=== PATIENT | female | born 1965 | race African-American/Black ===

== ENCOUNTER 2017-08-23 04:48 | Emergency (ER) | payer SELFPAY ==
[2017-08-23 05:11] LABS: Bilirubin Negative (Negative); Blood, Urine Large (Negative); Clarity CLEAR (Clear); Glucose, Urine (Dipstick) Negative (Negative); Leukocyte Negative (Negative); Nitrite Negative (Negative); Protein, Urine (Dipstick) Negative (Neg-Trace); Specific Gravity, Urine 1.016 (1.002-1.036); Urobilinogen 0.2 mg/dL (0.2-1.0); pH, Urine 6.5 (5.0-9.0)
[2017-08-23 05:13] LABS: Bacteria/HPF None Seen HPF (None Seen); Hyaline Casts/LPF 0-3 HYALINE CAST LPF (0-3 Hyaline); Pathc Cast-AUWi Flag 0.27 (0-2.49); RBC/HPF 0-3 HPF (0-3); Squamous Epithelial 0-3 HPF (0-3); WBC/HPF 0-3 HPF (0-3)
[2017-08-23] MEDS ORDERED: Ketorolac Tromethamine 30 MG/ML VIAL ONE (05:52)
[2017-08-23] MEDS ORDERED: Ondansetron HCl/PF 4 MG/2 ML Vial ONE (05:52)
[2017-08-23 06:30] LABS: #Basophils 0.1 thou/uL (0.0-0.2); #Eosinphils 0.2 thou/uL (0.0-0.7); #Lymphocytes 3.6 thou/uL (1.20-3.40); #Monocytes 0.7 thou/uL (0.11-0.59); #Neutrophils 6.9 thou/uL (1.40-6.50); %Basophils 0.7 % (0.0-1.0); %Eosinophils 2.1 % (0.0-10.0); %Lymphocytes 31.1 % (21.0-51.0); %Neutrophils 60.2 % (42.0-75.0); Hemoglobin 14.5 g/dL (12.0-16.0); Mean Corpuscular HGB CONC 32.8 g/dL (32.0-36.0); Mean Corpuscular Hemoglobin 29.4 pg (27.0-31.0); Mean Corpuscular Volume 89.6 fl (81.0-99.0); Mean Platelet Volume 8.8 fL (7.4-10.4); Platelet Count 239 thou/uL (130-400); RBC Distribution Width 13.8 % (11.5-14.5); Red Blood Cell (RBC) Count 4.94 mill/uL (4.20-5.40); White Blood Cell (WBC) Count 11.5 thou/uL (4.8-10.8)
[2017-08-23 06:58] LABS: ALT (SGPT) 21 U/L (8-55); AST (SGOT) 25 U/L (5-34); Albumin 3.9 g/dL (3.5-5.0); Alkaline Phosphatase 125 U/L (40-150); Anion Gap 15 mmol/L (10-20); BUN (Urea Nitrogen) 12 mg/dL (9.8-20.1); Bilirubin, Total Less than 0.2 mg/dL (0.2-1.2); Calc. Creatinine Clearance 0 mL/min (70-130); Carbon Dioxide 20 mmol/L (22-29); Chloride 107 mmol/L (98-107); Estimated GFR-MDRD Greater than 90; Globulin 4.1 g/dL (2.4-3.5); Glucose 130 mg/dL (70-105); Potassium 5.6 mmol/L (3.5-5.1); Sodium 136 mmol/L (136-145)
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
== END 2017-08-23 07:25 | disposition home or self-care (01) ==
LOC: ERS 04:48
DX: N23 Unspecified renal colic (principal); I10 Essential (primary) hypertension; F17.210 Nicotine dependence, cigarettes, uncomplicated
CPT/HCPCS: 74176; 80053; 81003; 81015; 85025; 96361; 96374; 96375; J1885; J2405

== ENCOUNTER 2019-10-02 06:47 | Emergency (ER) | payer SELFPAY ==
[2019-10-02] MEDS ORDERED: Metoclopramide HCl 10 MG/2 ML VIAL ONE (07:34)
[2019-10-02] MEDS ORDERED: hydrALAZINE 20 MG/ML VIAL ONE ×2 (07:34→10:00)
[2019-10-02] MEDS ORDERED: Ketorolac Tromethamine 30 MG/ML VIAL ONE (07:34)
[2019-10-02 08:08] LABS: #Basophils 0.1 thou/uL (0.0-0.2); #Eosinphils 0.2 thou/uL (0.0-0.7); #Lymphocytes 3.3 thou/uL (1.20-3.40); #Monocytes 0.5 thou/uL (0.11-0.59); #Neutrophils 3.9 thou/uL (1.40-6.50); %Basophils 1.6 % (0.0-1.0); %Eosinophils 2.7 % (0.0-10.0); %Lymphocytes 40.7 % (21.0-51.0); %Monocytes 5.8 % (0.0-10.0); %Neutrophils 49.2 % (42.0-75.0); Mean Corpuscular HGB CONC 33.4 g/dL (32.0-36.0); Mean Corpuscular Hemoglobin 29.5 pg (27.0-31.0); Mean Corpuscular Volume 88.3 fL (78.0-98.0); Mean Platelet Volume 10.5 fL (7.4-10.4); Platelet Count 215 thou/uL (130-400); RBC Distribution Width 13.2 % (11.5-14.5); Red Blood Cell (RBC) Count 5.07 mill/uL (4.20-5.40)
--- NOTE | 2019-10-02 08:08 | CT ---
CT HEAD WITHOUT IV CONTRAST COMPARISON: 03/31/2015 HISTORY: Headache and hypertension. History of prior CVA. TECHNIQUE: Axial CT imaging at 5 mm intervals from vertex through skull base without contrast FINDINGS: A stable area of encephalomalacia is seen in the posterior inferior left cerebellar hemisphere compat ible with a remote infarction. There is a low-density focus seen in the anterior right basal ganglia region and anterior limb right internal capsule and right caudate head compatible with a lacu james infarction of indeterminate age. This does represent an interval change from study in 2014. Scattered low-attenuation areas are seen in the periventricular white matter which are nonspecific bu t likely reflective of mild chronic small vessel ischemic changes. There is no evidence of an acute cortical infarction, hemorrhage, mass effect, or midline shift. The ventricular system is normal in s ize, shape, and position. The sphenoid sinuses are not pneumatized. The remainder the visualized paranasal sinuses and mastoid air cells are clear. Osseous structures appear intact. IMPRESSION: 1. Lacunar infarction of indeterminate age in the right basal ganglia. No acute cortical infarction i s seen, and there is no evidence of a hemorrhage. 2. Encephalomalacia related to remote infarction left cerebellar hemisphere. 3. Findings likely reflective of mild chronic small vessel ischemic changes.
[2019-10-02 08:25] LABS: ALT (SGPT) 20 U/L (8-55); AST (SGOT) 15 U/L (5-34); Albumin 4.4 g/dL (3.5-5.0); Alkaline Phosphatase 138 U/L (40-110); Anion Gap 14 mmol/L (10-20); BUN (Urea Nitrogen) 10 mg/dL (9.8-20.1); Bilirubin, Total 0.2 mg/dL (0.2-1.2); CK (CPK) 63 U/L (29-168); Calc. Creatinine Clearance 0 mL/min (70-130); Calcium 9.8 mg/dL (7.8-10.44); Carbon Dioxide 25 mmol/L (22-29); Chloride 105 mmol/L (98-107); Estimated GFR-MDRD 88; Globulin 3.6 g/dL (2.4-3.5); Glucose 193 mg/dL (70-105); Potassium 3.8 mmol/L (3.5-5.1); Sodium 140 mmol/L (136-145)
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
--- NOTE | 2019-10-03 13:07 | EKG ---
Test Reason : Blood Pressure : / mmHG Vent. Rate : 066 BPM Atrial Rate : 066 BPM P-R Int : 146 ms QRS Dur : 076 ms QT Int : 430 ms P-R-T Axes : 057 064 028 degrees QTc Int : 450 ms Normal sinus rhythm Possible Left atrial enlargement Left ventricular hypertrophy Abnormal ECG Confirmed by DOUG ZAZUETA DO ([id number]), newspaper or periodical editor JATINDER CARNEY ([id number]) on 10/03/2019 1:06:31 PM Referred By: Confirmed By:DOUG ZAZUETA DO
== END 2019-10-02 10:26 | disposition home or self-care (01) ==
LOC: ERS 06:47
DX: I10 Essential (primary) hypertension (principal); R51 Headache; F17.210 Nicotine dependence, cigarettes, uncomplicated; Z86.73 Personal history of transient ischemic attack (TIA), and cerebral infarction without residual deficits
CPT/HCPCS: 70450; 71045; 80053; 82550; 84484; 85025; 93005; 96374; 96375; 96376; J0360; J1885; J2765

== ENCOUNTER 2021-01-21 12:11 | Inpatient (IN) | payer SELFPAY ==
[2021-01-21 13:00] LABS: #Basophils 0.1 thou/uL (0.0-0.2); #Eosinphils 0.2 thou/uL (0.0-0.7); #Monocytes 0.6 thou/uL (0.11-0.59); #Neutrophils 5.4 thou/uL (1.40-6.50); %Basophils 0.8 % (0.0-1.0); %Eosinophils 1.9 % (0.0-10.0); %Lymphocytes 32.3 % (21.0-51.0); %Monocytes 6.3 % (0.0-10.0); %Neutrophils 58.7 % (42.0-75.0); Mean Corpuscular HGB CONC 33.3 g/dL (32.0-36.0); Mean Corpuscular Hemoglobin 29.5 pg (27.0-31.0); Mean Corpuscular Volume 88.7 fL (78.0-98.0); Mean Platelet Volume 9.6 fL (7.4-10.4); Platelet Count 247 thou/uL (130-400); White Blood Cell (WBC) Count 9.1 thou/uL (4.8-10.8)
[2021-01-21] MEDS ORDERED: Magnesium 2 GM/50 ML BAG (IN WATER) ONE (13:07)
[2021-01-21 13:24] LABS: ALT (SGPT) 12 U/L (8-55); AST (SGOT) 14 U/L (5-34); Acetaminophen Less than 6.0 mcg/mL (10.0-30.0); Albumin 3.8 g/dL (3.5-5.0); Alkaline Phosphatase 101 U/L (40-110); Anion Gap 12 mmol/L (10-20); BUN (Urea Nitrogen) 14 mg/dL (9.8-20.1); Bilirubin, Total 0.4 mg/dL (0.2-1.2); Calc. Creatinine Clearance 0 mL/min (70-130); Calcium 9.4 mg/dL (7.8-10.44); Carbon Dioxide 27 mmol/L (22-29); Chloride 103 mmol/L (98-107); Globulin 3.5 g/dL (2.4-3.5); Glucose 212 mg/dL (70-105); Magnesium 1.7 mg/dL (1.6-2.6); Potassium 4.2 mmol/L (3.5-5.1); Protein, Total 7.3 g/dL (6.0-8.3); Sodium 138 mmol/L (136-145)
[2021-01-21 13:25] LABS: Alcohol Less than 10 mg/dL (Less than 10); Salicylate Less than 8.0 mg/dL (15.0-30.0)
[2021-01-21 17:11] VITALS: BMI 34.9
[2021-01-21] MEDS ORDERED: Acetaminophen 325 MG TAB PO PRN ×2 (17:15→19:14)
[2021-01-21] MEDS ORDERED: Ondansetron ODT 4 MG TAB SL PRN (17:15)
[2021-01-21] MEDS ORDERED: Ondansetron PF 4 MG/2 ML Vial IVP PRN (17:15)
[2021-01-21] MEDS ORDERED: Sodium Chloride 0.9% 1,000 ML IV SCH (17:15)
[2021-01-21 19:03] LABS: Troponin I Less than 0.010 ng/mL (< 0.028)
[2021-01-21] MEDS ORDERED: Senokot S 8.6-50 MG TAB PO PRN (19:14)
[2021-01-21] MEDS ORDERED: HumaLOG 300 UNITS/3 ML VIAL SC PRN ×2 (19:21)
[2021-01-21] MEDS ORDERED: Dextrose 5% in Water 1,000 ML IV PRN (19:21)
[2021-01-21] MEDS ORDERED: Dextrose 50% Abboject 50 ML SYRINGE SLOW IVP PRN (19:21)
[2021-01-21 20:01] LABS: Bilirubin Negative (Negative); Blood, Urine Negative (Negative); Clarity Clear (Clear); Glucose, Urine (Dipstick) 50 mg/dL (Negative); Ketone, Urine Negative (Negative); Leukocyte Negative Leu/uL (Negative); Nitrite Negative (Negative); Protein, Urine (Dipstick) Negative (Neg-Trace); RBC/HPF None Seen HPF (0-3); Specific Gravity, Urine 1.015 (1.002-1.036); Squamous Epithelial 0-3 HPF (0-3); Urobilinogen Normal mg/dL (Less than 2); WBC/HPF 0-3 HPF (0-3); pH, Urine 5.5 (5.0-9.0)
[2021-01-21 20:03] LABS: Bacteria/HPF Rare-Few HPF (None Seen); Pregnancy Test - Urine (BHCG) Negative (Negative); Urine Culture Reflex No No
[2021-01-21 20:04] LABS: Pregu Control Background? CLEAR/WHITE (CLR/WHITE); Pregu Control Bar Appear? YES (CONTROL BAR); Specific Gravity 1.015 (1.002-1.036)
[2021-01-21] MEDS: Sodium Chloride 0.9% 1,000 ML IV SCH (20:04)
[2021-01-21 20:10] LABS: Amphetamine Not Detected (NotDetected); Barbiturates Screen Not Detected (NotDetected); Benzodiazepine Screen Not Detected (NotDetected); Cocaine Metabolite Screen Not Detected (NotDetected); Methadone Not Detected (NotDetected); Methamphetamine Not Detected (NotDetected); Opiate Screen Not Detected (NotDetected); Oxycodone Screen Not Detected (NotDetected); Phencyclidine (PCP) Not Detected (NotDetected); THC/Cannabinoid Screen Detected (NotDetected); Tricyclic Screen Not Detected (NotDetected)
[2021-01-21] MEDS: Famotidine 20 MG TAB PO SCH (20:31)
[2021-01-21 22:00] LABS: Troponin I Less than 0.010 ng/mL (< 0.028)
[2021-01-21 22:36] LABS: SARS-CoV-2 PCR by NAA Not Detected (NotDetected)
[2021-01-22] MEDS: Sodium Chloride 0.9% 1,000 ML IV SCH (03:38)
[2021-01-22 04:57] LABS: #Basophils 0.1 thou/uL (0.0-0.2); #Eosinphils 0.3 thou/uL (0.0-0.7); #Lymphocytes 4.2 thou/uL (1.20-3.40); #Monocytes 0.7 thou/uL (0.11-0.59); %Basophils 0.9 % (0.0-1.0); %Eosinophils 2.5 % (0.0-10.0); %Monocytes 7.1 % (0.0-10.0); %Neutrophils 48.5 % (42.0-75.0); Hemoglobin 12.7 g/dL (12.0-16.0); Mean Corpuscular HGB CONC 33.6 g/dL (32.0-36.0); Mean Corpuscular Volume 89.4 fL (78.0-98.0); Platelet Count 244 thou/uL (130-400); RBC Distribution Width 13.2 % (11.5-14.5); Red Blood Cell (RBC) Count 4.23 mill/uL (4.20-5.40); White Blood Cell (WBC) Count 10.3 thou/uL (4.8-10.8)
[2021-01-22 05:18] LABS: Anion Gap 13 mmol/L (10-20); BUN (Urea Nitrogen) 12 mg/dL (9.8-20.1); Calc. Creatinine Clearance 94 mL/min (70-130); Calcium 8.8 mg/dL (7.8-10.44); Carbon Dioxide 23 mmol/L (22-29); Cardiac Risk 4.8 (Less than 4.5); Chloride 106 mmol/L (98-107); Cholesterol 189 mg/dl (< 200 Desired); Glucose 223 mg/dL (70-105); HDL Cholesterol 39 mg/dL (>60 Neg Risk); LDL Cholesterol, Calculated 114 mg/dL; Potassium 3.8 mmol/L (3.5-5.1); Sodium 138 mmol/L (136-145); Triglycerides 180 mg/dL (Less than 150)
[2021-01-22] MEDS: Amlodipine 5 MG TAB PO SCH (08:31)
[2021-01-22] MEDS: Famotidine 20 MG TAB PO SCH ×2 (08:32→20:13)
[2021-01-22] MEDS: Hydrochlorothiazide 25 MG TAB PO SCH (08:32)
[2021-01-22] MEDS: Aspirin 81 mg Enteric Coated Tablet PO SCH (08:32)
[2021-01-22] MEDS: Enoxaparin Sodium 40 MG/0.4 ML SYRINGE SC SCH (08:32)
[2021-01-22] MEDS ORDERED: Atorvastatin Calcium 20 MG TAB PO SCH (21:00)
[2021-01-23] MEDS: Hydrochlorothiazide 25 MG TAB PO SCH (09:39)
[2021-01-23] MEDS: Aspirin 81 mg Enteric Coated Tablet PO SCH (09:40)
[2021-01-23] MEDS: Amlodipine 5 MG TAB PO SCH (09:40)
[2021-01-23] MEDS: Enoxaparin Sodium 40 MG/0.4 ML SYRINGE SC SCH (09:41)
[2021-01-23] MEDS: Famotidine 20 MG TAB PO SCH (09:41)
[2021-01-23] MEDS ORDERED: metFORMIN 500 MG TAB PO SCH (17:00)
[2021-01-23 17:22] VITALS: BP 141/69; TEMP 98.1
== END 2021-01-23 19:25 | disposition home or self-care (01) | DRG 312 ==
LOC: ERS 12:11 → 2NO 15:41
PROVIDERS: ADMIT Internal Medicine; ATTEND Family Medicine
DX: R55 Syncope and collapse (principal); I10 Essential (primary) hypertension; Z20.822 Contact with and (suspected) exposure to COVID-19; E11.65 Type 2 diabetes mellitus with hyperglycemia; E78.5 Hyperlipidemia, unspecified; F17.210 Nicotine dependence, cigarettes, uncomplicated; F12.10 Cannabis abuse, uncomplicated; I08.1 Rheumatic disorders of both mitral and tricuspid valves; R94.31 Abnormal electrocardiogram [ECG] [EKG]; Z98.51 Tubal ligation status; Z79.899 Other long term (current) drug therapy; Z79.82 Long term (current) use of aspirin; Z86.73 Personal history of transient ischemic attack (TIA), and cerebral infarction without residual deficits; Z79.84 Long term (current) use of oral hypoglycemic drugs
CPT/HCPCS: 36415; 36416; 70551; 80048; 80053; 80061; 80306; 80307; 81001; 81025; 83735; 84443; 84484; 85025; 93005; 93306; 93880; 96365; J1650; J3475; U0003; U0005

== ENCOUNTER 2021-03-29 14:18 | Emergency (ER) | payer SELFPAY ==
[~2021-03-29 14:18] MED LIST: Iopamidol-370 76% 500 ML 1 ML ONE
[2021-03-29 15:18] LABS: #Basophils 0.1 thou/uL (0.0-0.2); #Eosinphils 0.3 thou/uL (0.0-0.7); #Lymphocytes 3.7 thou/uL (1.20-3.40); #Monocytes 0.5 thou/uL (0.11-0.59); #Neutrophils 4.3 thou/uL (1.40-6.50); %Basophils 0.9 % (0.0-1.0); %Eosinophils 3.5 % (0.0-10.0); %Monocytes 6.1 % (0.0-10.0); %Neutrophils 48.4 % (42.0-75.0); Hemoglobin 13.8 g/dL (12.0-16.0); Mean Corpuscular HGB CONC 33.4 g/dL (32.0-36.0); Mean Corpuscular Hemoglobin 29.9 pg (27.0-31.0); Mean Corpuscular Volume 89.6 fL (78.0-98.0); Mean Platelet Volume 10.5 fL (7.4-10.4); Platelet Count 241 thou/uL (130-400); Red Blood Cell (RBC) Count 4.62 mill/uL (4.20-5.40); White Blood Cell (WBC) Count 8.9 thou/uL (4.8-10.8)
[2021-03-29 15:41] LABS: ALT (SGPT) 27 U/L (8-55); AST (SGOT) 11 U/L (5-34); Alkaline Phosphatase 123 U/L (40-110); Anion Gap 12 mmol/L (10-20); BUN (Urea Nitrogen) 11 mg/dL (9.8-20.1); Bilirubin, Total 0.2 mg/dL (0.2-1.2); Calc. Creatinine Clearance 0 mL/min (70-130); Calcium 9.4 mg/dL (7.8-10.44); Carbon Dioxide 25 mmol/L (22-29); Chloride 106 mmol/L (98-107); Globulin 3.3 g/dL (2.4-3.5); Glucose 173 mg/dL (70-105); Potassium 3.8 mmol/L (3.5-5.1); Protein, Total 7.3 g/dL (6.0-8.3); Sodium 139 mmol/L (136-145)
[2021-03-29] MEDS ORDERED: Morphine 4 MG/ML VIAL ONE (16:47)
[2021-03-29] MEDS ORDERED: Dicyclomine 20 MG TAB ONE (16:47)
[2021-03-29 17:04] LABS: Bilirubin Negative (Negative); Blood, Urine Negative (Negative); Clarity Clear (Clear); Glucose, Urine (Dipstick) Normal (Negative); Ketone, Urine Negative (Negative); Leukocyte Negative Leu/uL (Negative); Nitrite Negative (Negative); Protein, Urine (Dipstick) Negative (Neg-Trace); Urobilinogen Normal mg/dL (Less than 2); pH, Urine 5.5 (5.0-9.0)
[2021-03-29] MEDS ORDERED: Ondansetron PF 4 MG/2 ML Vial ONE (17:17)
[2021-03-29] MEDS ORDERED: Cefepime 2 GM VIAL ONE (17:35)
== END 2021-03-29 19:45 | disposition home or self-care (01) ==
LOC: ERS 14:18
DX: K85.90 Acute pancreatitis without necrosis or infection, unspecified (principal); F17.210 Nicotine dependence, cigarettes, uncomplicated; I10 Essential (primary) hypertension; Z86.73 Personal history of transient ischemic attack (TIA), and cerebral infarction without residual deficits; Z86.79 Personal history of other diseases of the circulatory system
CPT/HCPCS: 36415; 71275; 74174; 80053; 81003; 83605; 83690; 84484; 85025; 93005; 94760; 96374; 96375; J0692; J2270; J2405; Q9967

== ENCOUNTER 2022-06-28 18:01 | Inpatient (IN) | payer SELFPAY ==
[2022-06-28 18:43] LABS: #Basophils 0.1 thou/uL (0.0-0.2); #Eosinphils 0.4 thou/uL (0.0-0.7); #Lymphocytes 4.8 thou/uL (1.20-3.40); #Monocytes 0.7 thou/uL (0.11-0.59); #Neutrophils 6.2 thou/uL (1.40-6.50); %Basophils 0.6 % (0.0-1.0); %Eosinophils 3.1 % (0.0-10.0); %Lymphocytes 39.4 % (21.0-51.0); %Monocytes 5.7 % (0.0-10.0); %Neutrophils 51.2 % (42.0-75.0); Hemoglobin 14.2 g/dL (12.0-16.0); Mean Corpuscular HGB CONC 33.5 g/dL (32.0-36.0); Mean Corpuscular Hemoglobin 29.7 pg (27.0-31.0); Mean Corpuscular Volume 88.9 fl (78.0-98.0); Mean Platelet Volume 10.3 fL (7.4-10.4); Platelet Count 249 10x3/uL (130-400); RBC Distribution Width 13.1 % (11.5-14.5); Red Blood Cell (RBC) Count 4.78 mill/uL (4.20-5.40); White Blood Cell (WBC) Count 12.1 10x3/uL (4.8-10.8)
[2022-06-28 18:53] LABS: INR-International Normal Ratio 0.9; Prothrombin Time 12.8 sec (12.0-14.7)
[2022-06-28 18:54] LABS: PTT 27.3 sec (22.9-36.1)
[2022-06-28 19:02] LABS: ALT (SGPT) 15 U/L (8-55); AST (SGOT) 13 U/L (5-34); Alkaline Phosphatase 136 U/L (40-110); Anion Gap 15 mmol/L (10-20); BUN (Urea Nitrogen) 13 mg/dL (9.8-20.1); Bilirubin, Total 0.2 mg/dL (0.2-1.2); Calc. Creatinine Clearance 0 mL/min (70-130); Carbon Dioxide 22 mmol/L (22-29); Chloride 108 mmol/L (98-107); Estimated GFR 79; Glucose 184 mg/dL (70-105); Potassium 4.4 mmol/L (3.5-5.1); Sodium 141 mmol/L (136-145)
[2022-06-28] MEDS ORDERED: hydrALAZINE 20 MG/ML VIAL ONE (19:52)
[2022-06-28] MEDS ORDERED: Nitroglycerin 2% Ointment 1 INCH/1 GM Packet ONE (19:52)
[2022-06-28] MEDS ORDERED: Aspirin Chewable 81 MG TAB ONE (20:22)
[2022-06-28] MEDS ORDERED: hydrALAZINE 20 MG/ML VIAL SLOW IVP PRN (21:19)
[2022-06-28] MEDS ORDERED: Ondansetron ODT 4 MG TAB SL PRN (21:30)
[2022-06-28] MEDS ORDERED: Ondansetron PF 4 MG/2 ML Vial IVP PRN (21:30)
[2022-06-28] MEDS ORDERED: HumaLOG 300 UNITS/3 ML VIAL SC PRN (21:57)
[2022-06-28] MEDS ORDERED: Dextrose 50% Abboject 50 ML SYRINGE SLOW IVP PRN (21:57)
[2022-06-28] MEDS ORDERED: Dextrose 5% in Water 1,000 ML IV PRN (21:57)
[2022-06-28 22:32] LABS: SARS-CoV-2 NAA Rapid Test Not Detected (NotDetected)
[2022-06-28] MEDS: Sodium Chloride 0.9% 1,000 ML IV SCH (22:40)
[2022-06-29 01:31] LABS: Bilirubin Negative (Negative); Blood, Urine Negative (Negative); CAUTI Indications for Culture Dysuria,urgency,freq; Clarity Clear (Clear); Glucose, Urine (Dipstick) Greater than 1000 mg/dL (Negative); Ketone, Urine Negative (Negative); Leukocyte Negative Leu/uL (Negative); Nitrite Negative (Negative); Protein, Urine (Dipstick) Negative (Neg-Trace); RBC/HPF None Seen HPF (0-3); Specific Gravity, Urine 1.012 (1.002-1.036); Squamous Epithelial 0-3 HPF (0-3); Urobilinogen Normal mg/dL (Less than 2); WBC/HPF None Seen HPF (0-3)
[2022-06-29 01:32] LABS: Bacteria/HPF Rare-Few HPF (None Seen)
[2022-06-29 01:34] LABS: Urine Culture Reflex No No
[2022-06-29 01:36] LABS: Amphetamine Not Detected (NotDetected); Barbiturates Screen Not Detected (NotDetected); Benzodiazepine Screen Not Detected (NotDetected); Cocaine Metabolite Screen Not Detected (NotDetected); Methadone Not Detected (NotDetected); Methamphetamine Not Detected (NotDetected); Opiate Screen Not Detected (NotDetected); Oxycodone Screen Not Detected (NotDetected); Phencyclidine (PCP) Not Detected (NotDetected); THC/Cannabinoid Screen Detected (NotDetected); Tricyclic Screen Not Detected (NotDetected)
[2022-06-29 07:11] LABS: #Basophils 0.1 thou/uL (0.0-0.2); #Eosinphils 0.3 thou/uL (0.0-0.7); #Lymphocytes 3.9 thou/uL (1.20-3.40); #Monocytes 0.8 thou/uL (0.11-0.59); %Basophils 0.9 % (0.0-1.0); %Eosinophils 3.4 % (0.0-10.0); %Lymphocytes 38.8 % (21.0-51.0); %Monocytes 7.5 % (0.0-10.0); %Neutrophils 49.4 % (42.0-75.0); Hemoglobin 13.5 g/dL (12.0-16.0); Mean Corpuscular HGB CONC 33.7 g/dL (32.0-36.0); Mean Corpuscular Hemoglobin 30.1 pg (27.0-31.0); Mean Corpuscular Volume 89.3 fl (78.0-98.0); Mean Platelet Volume 10.4 fL (7.4-10.4); Platelet Count 242 10x3/uL (130-400); RBC Distribution Width 12.9 % (11.5-14.5); Red Blood Cell (RBC) Count 4.48 mill/uL (4.20-5.40); White Blood Cell (WBC) Count 10.1 10x3/uL (4.8-10.8)
[2022-06-29] MEDS ORDERED: HumaLOG 300 UNITS/3 ML VIAL ONE (07:47)
[2022-06-29] MEDS: HumaLOG 300 UNITS/3 ML VIAL SC PRN (07:50)
[2022-06-29] MEDS ORDERED: Nicotine 21 MG PATCH TD SCH (09:00)
[2022-06-29] MEDS ORDERED: Aspirin Chewable 81 MG TAB PO SCH (09:00)
[2022-06-29] MEDS ORDERED: Aspirin 325 MG TAB PO SCH (09:00)
[2022-06-29 09:09] LABS: Anion Gap 15 mmol/L (10-20); BUN (Urea Nitrogen) 10 mg/dL (9.8-20.1); Calc. Creatinine Clearance 103 mL/min (70-130); Calcium 8.9 mg/dL (7.8-10.44); Carbon Dioxide 19 mmol/L (22-29); Cardiac Risk 4.1 (Less than 4.5); Chloride 109 mmol/L (98-107); Cholesterol 160 mg/dl (< 200 Desired); Estimated GFR 88; Glucose 295 mg/dL (70-105); HDL Cholesterol 39 mg/dL (>60 Neg Risk); LDL Cholesterol, Calculated 95 mg/dL; Magnesium 1.7 mg/dL (1.6-2.6); Phosphorus 3.1 mg/dL (2.3-4.7); Potassium 3.9 mmol/L (3.5-5.1); Sodium 139 mmol/L (136-145); Triglycerides 129 mg/dL (Less than 150)
[2022-06-29] MEDS: Nicotine 7 MG PATCH TD SCH (10:56)
[2022-06-29] MEDS: Heparin 5,000 UNITS/ML VIAL SC SCH ×2 (10:56→21:39)
[2022-06-29] MEDS: Sodium Chloride 0.9% 1,000 ML IV SCH (10:58)
[2022-06-29] MEDS ORDERED: Aspirin Chewable 81 MG TAB ONE (10:59)
[2022-06-29] MEDS: Atorvastatin Calcium 40 MG TAB PO SCH (21:39)
[2022-06-29] MEDS: Amlodipine 5 MG TAB PO SCH (21:39)
[2022-06-30 03:01] VITALS: BMI 32.9
[2022-06-30 05:17] LABS: Hemoglobin A1c 8.6 % (4.0-6.0)
[2022-06-30] MEDS: HumaLOG 300 UNITS/3 ML VIAL SC PRN ×2 (07:11→12:39)
[2022-06-30] MEDS: Aspirin 325 mg Enteric Coated Tablet PO SCH (09:59)
[2022-06-30] MEDS: Heparin 5,000 UNITS/ML VIAL SC SCH ×2 (09:59→20:16)
[2022-06-30] MEDS: Nicotine 7 MG PATCH TD SCH (10:00)
[2022-06-30] MEDS ORDERED: Iopamidol 370 76% 100 ML VIAL ONE (10:15)
[2022-06-30] MEDS: Atorvastatin Calcium 40 MG TAB PO SCH (20:16)
[2022-06-30] MEDS: Amlodipine 5 MG TAB PO SCH (20:16)
[2022-07-01] MEDS: HumaLOG 300 UNITS/3 ML VIAL SC PRN ×2 (05:48→11:56)
[2022-07-01 05:58] LABS: Anion Gap 11 mmol/L (10-20); BUN (Urea Nitrogen) 12 mg/dL (9.8-20.1); Calc. Creatinine Clearance 101 mL/min (70-130); Calcium 9.4 mg/dL (7.8-10.44); Carbon Dioxide 22 mmol/L (22-29); Chloride 110 mmol/L (98-107); Estimated GFR 93; Glucose 196 mg/dL (70-105); Potassium 3.8 mmol/L (3.5-5.1); Sodium 139 mmol/L (136-145)
[2022-07-01] MEDS: Nicotine 7 MG PATCH TD SCH (08:56)
[2022-07-01] MEDS: Heparin 5,000 UNITS/ML VIAL SC SCH (08:58)
[2022-07-01] MEDS: Aspirin 325 mg Enteric Coated Tablet PO SCH (08:58)
[2022-07-01] MEDS ORDERED: Benzonatate 100 MG CAP PO PRN (10:15)
[2022-07-01] MEDS ORDERED: metFORMIN 500 MG TAB PO SCH (10:15)
[2022-07-01] MEDS ORDERED: GUAIFENESIN SF SOLN 200 MG/10 ML UDCUP PO PRN (10:15)
[2022-07-01] MEDS ORDERED: Lisinopril 10 MG TAB PO SCH (10:30)
[2022-07-01] MEDS: Atorvastatin Calcium 40 MG TAB PO SCH (20:31)
[2022-07-01] MEDS: Amlodipine 5 MG TAB PO SCH (20:31)
[2022-07-01] MEDS: metFORMIN 500 MG TAB PO SCH (20:31)
[2022-07-02 06:03] LABS: Anion Gap 13 mmol/L (10-20); BUN (Urea Nitrogen) 13 mg/dL (9.8-20.1); Calc. Creatinine Clearance 101 mL/min (70-130); Calcium 9.2 mg/dL (7.8-10.44); Carbon Dioxide 21 mmol/L (22-29); Chloride 108 mmol/L (98-107); Estimated GFR 93; Glucose 179 mg/dL (70-105); Sodium 138 mmol/L (136-145)
[2022-07-02] MEDS: HumaLOG 300 UNITS/3 ML VIAL SC PRN ×2 (06:14→12:08)
[2022-07-02] MEDS ORDERED: Polyvinyl Alcohol 1.4%/Povidone 0.6% Opth Drops EA EYE PRN (07:29)
[2022-07-02] MEDS: Nicotine 7 MG PATCH TD SCH (08:48)
[2022-07-02] MEDS: metFORMIN 500 MG TAB PO SCH (08:55)
[2022-07-02] MEDS ORDERED: Lisinopril 10 MG TAB PO SCH (09:00)
[2022-07-02] MEDS ORDERED: Aspirin Chewable 81 MG TAB PO SCH (09:00)
[2022-07-02 11:54] VITALS: BP 155/87; TEMP 97.7
== END 2022-07-02 16:47 | disposition home or self-care (01) | DRG 66 ==
LOC: ERS 18:01 → ERHOLD 21:27 → NEURO 06-29 18:44
PROVIDERS: ADMIT Family Medicine; ATTEND Family Medicine
DX: I63.9 Cerebral infarction, unspecified (principal); R29.702 NIHSS score 2; Z20.822 Contact with and (suspected) exposure to COVID-19; R47.81 Slurred speech; R29.810 Facial weakness; I65.03 Occlusion and stenosis of bilateral vertebral arteries; I10 Essential (primary) hypertension; E11.9 Type 2 diabetes mellitus without complications; F12.10 Cannabis abuse, uncomplicated; I16.0 Hypertensive urgency; D72.829 Elevated white blood cell count, unspecified; E78.5 Hyperlipidemia, unspecified; R05.9 Cough, unspecified; H57.89 Other specified disorders of eye and adnexa; I49.8 Other specified cardiac arrhythmias; Z88.5 Allergy status to narcotic agent; Z79.899 Other long term (current) drug therapy; Z79.82 Long term (current) use of aspirin; Z79.84 Long term (current) use of oral hypoglycemic drugs; Z98.51 Tubal ligation status; Z71.6 Tobacco abuse counseling; Q82.8 Other specified congenital malformations of skin; Z91.14 Patient's other noncompliance with medication regimen; Z86.73 Personal history of transient ischemic attack (TIA), and cerebral infarction without residual deficits; Z82.3 Family history of stroke; Z80.0 Family history of malignant neoplasm of digestive organs; Z82.49 Family history of ischemic heart disease and other diseases of the circulatory system
CPT/HCPCS: 36415; 36416; 70450; 70496; 70498; 70551; 71045; 80048; 80053; 80061; 80306; 81001; 82550; 83036; 83735; 83880; 84100; 84484; 85025; 85610; 85730; 93005; 93306; 93880; J0360; J1644; J1650; J1815; J7050; Q9967; U0002

== ENCOUNTER 2024-05-26 23:18 | Inpatient (IN) | payer BC, SELFPAY ==
[2024-05-27 01:14] LABS: Troponin I Less than 0.010 ng/mL (< 0.028)
[2024-05-27] MEDS ORDERED: Acetaminophen 325 MG TAB PO PRN (01:45)
[2024-05-27] MEDS ORDERED: Ondansetron ODT 4 MG TAB SL PRN (01:45)
[2024-05-27] MEDS ORDERED: Ondansetron PF 4 MG/2 ML Vial IVP PRN ×2 (01:45→02:17)
[2024-05-27 01:47] VITALS: BMI 33.2
[2024-05-27] MEDS ORDERED: hydrALAZINE 20 MG/ML VIAL SLOW IVP PRN (02:17)
[2024-05-27] MEDS ORDERED: Ondansetron ODT 4 MG TAB PO PRN (02:17)
[2024-05-27 04:56] LABS: #Basophils 0.05 10x3/uL (0.0-0.2); %Basophils 0.5 % (0.0-1.0); %Eosinophils 2.6 % (0.0-10.0); %Lymphocytes 50.1 % (21.0-51.0); %Monocytes 5.7 % (0.0-10.0); %Neutrophils 40.9 % (42.0-75.0); Hematocrit 40.9 % (36.0-47.0); Mean Corpuscular HGB CONC 31.8 g/dL (32.0-36.0); Mean Corpuscular Hemoglobin 28.1 pg (27.0-31.0); Mean Corpuscular Volume 88.5 fL (78.0-98.0); Mean Platelet Volume 12.9 fL (7.4-10.4); Platelet Count 267 10x3/uL (130-400); RBC Distribution Width 14.6 % (11.5-14.5); Red Blood Cell (RBC) Count 4.62 mill/uL (4.20-5.40)
[2024-05-27 05:07] LABS: ALT (SGPT) 21 U/L (8-55); AST (SGOT) 15 U/L (5-34); Albumin 3.6 g/dL (3.5-5.0); Alkaline Phosphatase 124 U/L (40-110); Anion Gap 15 mmol/L (10-20); BUN (Urea Nitrogen) 9 mg/dL (9.8-20.1); Bilirubin, Total 0.2 mg/dL (0.2-1.2); Calc. Creatinine Clearance 92 mL/min (70-130); Calcium 9.4 mg/dL (7.8-10.44); Carbon Dioxide 21 mmol/L (22-29); Cardiac Risk 3.6 (Less than 4.5); Chloride 106 mmol/L (98-107); Cholesterol 179 mg/dl (< 200 Desired); Estimated GFR 84; Globulin 3.9 g/dL (2.4-3.5); Glucose 112 mg/dL (70-105); HDL Cholesterol 50 mg/dL (>60 Neg Risk); LDL Cholesterol, Calculated 106 mg/dL; Magnesium 1.9 mg/dL (1.6-2.6); Potassium 3.6 mmol/L (3.5-5.1); Protein, Total 7.5 g/dL (6.0-8.3); Sodium 138 mmol/L (136-145); Triglycerides 117 mg/dL (Less than 150)
[2024-05-27 05:17] LABS: Hemoglobin A1c 9.2 % (4.0-6.0)
[2024-05-27] MEDS: Aspirin 81 mg Enteric Coated Tablet PO SCH (08:48)
[2024-05-27] MEDS: FLU (Fluarix Triv) TS24-25(6MOS UP)/PF 45 MCG/0.5 ML Syringe IM ONE (08:48)
[2024-05-27 11:20] VITALS: BMI 33.2
[2024-05-27] MEDS: Atorvastatin Calcium 40 MG TAB PO SCH (21:52)
[2024-05-28 02:07] LABS: Amphetamine Not Detected (NotDetected); Barbiturates Screen Not Detected (NotDetected); Benzodiazepine Screen Not Detected (NotDetected); Cocaine Metabolite Screen Not Detected (NotDetected); Methadone Not Detected (NotDetected); Methamphetamine Not Detected (NotDetected); Opiate Screen Not Detected (NotDetected); Oxycodone Screen Not Detected (NotDetected); Phencyclidine (PCP) Not Detected (NotDetected); THC/Cannabinoid Screen Not Detected (NotDetected); Tricyclic Screen Not Detected (NotDetected)
[2024-05-28 05:52] LABS: #Basophils 0.05 10x3/uL (0.0-0.2); %Basophils 0.6 % (0.0-1.0); %Eosinophils 3.1 % (0.0-10.0); %Lymphocytes 45.2 % (21.0-51.0); %Monocytes 6.8 % (0.0-10.0); %Neutrophils 44.2 % (42.0-75.0); Hematocrit 36.9 % (36.0-47.0); Hemoglobin 12.2 g/dL (12.0-16.0); Mean Corpuscular HGB CONC 33.1 g/dL (32.0-36.0); Mean Corpuscular Hemoglobin 28.4 pg (27.0-31.0); Mean Platelet Volume 12.6 fL (7.4-10.4); Platelet Count 232 10x3/uL (130-400); RBC Distribution Width 14.2 % (11.5-14.5); Red Blood Cell (RBC) Count 4.29 mill/uL (4.20-5.40)
[2024-05-28 06:12] LABS: Anion Gap 14 mmol/L (10-20); BUN (Urea Nitrogen) 13 mg/dL (9.8-20.1); Calc. Creatinine Clearance 86 mL/min (70-130); Calcium 8.8 mg/dL (7.8-10.44); Carbon Dioxide 21 mmol/L (22-29); Chloride 109 mmol/L (98-107); Estimated GFR 77; Glucose 157 mg/dL (70-105); Potassium 3.7 mmol/L (3.5-5.1); Sodium 140 mmol/L (136-145)
[2024-05-29 04:43] LABS: #Basophils 0.04 10x3/uL (0.0-0.2); %Basophils 0.5 % (0.0-1.0); %Eosinophils 2.5 % (0.0-10.0); %Lymphocytes 45.6 % (21.0-51.0); %Monocytes 6.7 % (0.0-10.0); %Neutrophils 44.5 % (42.0-75.0); Hematocrit 37.8 % (36.0-47.0); Hemoglobin 12.3 g/dL (12.0-16.0); Mean Corpuscular HGB CONC 32.5 g/dL (32.0-36.0); Mean Corpuscular Hemoglobin 27.8 pg (27.0-31.0); Mean Corpuscular Volume 85.5 fL (78.0-98.0); Mean Platelet Volume 12.5 fL (7.4-10.4); Platelet Count 246 10x3/uL (130-400); RBC Distribution Width 13.9 % (11.5-14.5); Red Blood Cell (RBC) Count 4.42 mill/uL (4.20-5.40)
[2024-05-29 05:34] LABS: Anion Gap 15 mmol/L (10-20); BUN (Urea Nitrogen) 15 mg/dL (9.8-20.1); Calc. Creatinine Clearance 87 mL/min (70-130); Calcium 9.1 mg/dL (7.8-10.44); Carbon Dioxide 21 mmol/L (22-29); Chloride 109 mmol/L (98-107); Estimated GFR 78; Glucose 143 mg/dL (70-105); Potassium 3.6 mmol/L (3.5-5.1); Sodium 141 mmol/L (136-145)
[2024-05-29] MEDS: Pioglitazone HCl 15 MG TAB PO SCH (10:22)
[2024-05-29] MEDS ORDERED: Glucagon 1 MG/ML KIT IM PRN (10:26)
[2024-05-29] MEDS ORDERED: Dextrose 50% Abboject 50 ML SYRINGE SLOW IVP PRN (10:26)
[2024-05-29] MEDS ORDERED: Dextrose 5% in Water 1,000 ML IV PRN (10:26)
[2024-05-29] MEDS: Non-Formulary Item 1 EACH (Vitamin D3/Vitamin K2 (Mk4) [K2 Plus D3 Tablet] 1 EACH Tablet) PO SCH (15:42)
[2024-05-29] MEDS: Non-Formulary Item 1 EACH (Magnesium Glycinate [Mag Glycinate] 100 MG Tablet) PO SCH (15:42)
[2024-05-29] MEDS ORDERED: Clopidogrel Bisulfate 300 MG TAB PO SCH (16:00)
[2024-05-29] MEDS: Clopidogrel Bisulfate 75 MG TAB PO SCH (18:34)
[2024-05-29] MEDS: Acetaminophen 325 MG TAB PO PRN (20:34)
[2024-05-29] MEDS: Insulin Lispro 100 UNIT/ML 10 ML VIAL SC PRN (21:26)
[2024-05-30 04:55] LABS: #Basophils 0.06 10x3/uL (0.0-0.2); %Basophils 0.8 % (0.0-1.0); %Lymphocytes 46.3 % (21.0-51.0); %Monocytes 7.2 % (0.0-10.0); %Neutrophils 42.4 % (42.0-75.0); Hemoglobin 12.3 g/dL (12.0-16.0); Mean Corpuscular HGB CONC 32.4 g/dL (32.0-36.0); Mean Corpuscular Hemoglobin 28.4 pg (27.0-31.0); Mean Corpuscular Volume 87.8 fL (78.0-98.0); Mean Platelet Volume 11.9 fL (7.4-10.4); Platelet Count 245 10x3/uL (130-400); Red Blood Cell (RBC) Count 4.33 mill/uL (4.20-5.40)
[2024-05-30 05:07] LABS: Anion Gap 16 mmol/L (10-20); BUN (Urea Nitrogen) 17 mg/dL (9.8-20.1); Calc. Creatinine Clearance 92 mL/min (70-130); Carbon Dioxide 21 mmol/L (22-29); Chloride 109 mmol/L (98-107); Estimated GFR 84; Glucose 140 mg/dL (70-105); Potassium 3.9 mmol/L (3.5-5.1); Sodium 142 mmol/L (136-145)
[2024-05-30] MEDS: Clopidogrel Bisulfate 75 MG TAB PO SCH (09:38)
[2024-05-30 11:30] VITALS: BP 150/70; TEMP 97.9
== END 2024-05-30 16:10 | disposition home or self-care (01) | DRG 65 ==
LOC: ERS 23:18 → 2NO 05-27 00:38 → OBSVTOIN 05-28 11:33
PROVIDERS: ADMIT Internal Medicine; ATTEND Internal Medicine
DX: I63.9 Cerebral infarction, unspecified (principal); G81.91 Hemiplegia, unspecified affecting right dominant side; R29.810 Facial weakness; I10 Essential (primary) hypertension; F17.210 Nicotine dependence, cigarettes, uncomplicated; E11.9 Type 2 diabetes mellitus without complications; F12.90 Cannabis use, unspecified, uncomplicated; F10.90 Alcohol use, unspecified, uncomplicated; R29.704 NIHSS score 4; Z79.82 Long term (current) use of aspirin; Z79.02 Long term (current) use of antithrombotics/antiplatelets; Z88.5 Allergy status to narcotic agent; Z98.51 Tubal ligation status; Z79.84 Long term (current) use of oral hypoglycemic drugs; Z79.899 Other long term (current) drug therapy
CPT/HCPCS: 36415; 36416; 70551; 80048; 80053; 80061; 80306; 83036; 83735; 84443; 84484; 85025; 90656; 93005; 93306; 94760; G0378; J1815